=== PATIENT | female | born 1955 | race Caucasian/White ===

== ENCOUNTER 2024-05-26 15:01 | Outpatient (RCR) | payer MEDICARE, BC, SELFPAY | END 2024-05-26 23:59 | disposition home or self-care (01) | LOC: RPT 15:01 | PROVIDERS: ATTENDING PHYSICIAN Urology; FAMILY PHYSICIAN Internal Medicine | DX: N30.10 Interstitial cystitis (chronic) without hematuria (principal); M62.89 Other specified disorders of muscle; R33.9 Retention of urine, unspecified; N95.2 Postmenopausal atrophic vaginitis; Z73.6 Limitation of activities due to disability; M81.0 Age-related osteoporosis without current pathological fracture | CPT/HCPCS: 97110; 97112; 97163; 97530 ==

== ENCOUNTER 2024-07-01 13:56 | Outpatient (RCR) | payer MEDICARE, BC, SELFPAY | END 2024-07-01 23:59 | disposition home or self-care (01) | LOC: RPT 13:56 | PROVIDERS: ATTENDING PHYSICIAN Urology; FAMILY PHYSICIAN Internal Medicine | DX: N30.10 Interstitial cystitis (chronic) without hematuria (principal); M62.89 Other specified disorders of muscle; R33.9 Retention of urine, unspecified; N95.2 Postmenopausal atrophic vaginitis; Z73.6 Limitation of activities due to disability; M81.0 Age-related osteoporosis without current pathological fracture | CPT/HCPCS: 97014; 97110; 97112; 97140; 97530 ==

== ENCOUNTER 2024-07-31 07:10 | Outpatient (RCR) | payer MEDICARE, BC, SELFPAY | END 2024-07-31 23:59 | disposition home or self-care (01) | LOC: RPT 07:10 | PROVIDERS: ATTENDING PHYSICIAN Urology; FAMILY PHYSICIAN Internal Medicine | DX: N30.10 Interstitial cystitis (chronic) without hematuria (principal); M62.89 Other specified disorders of muscle; R33.9 Retention of urine, unspecified; N95.2 Postmenopausal atrophic vaginitis; Z73.6 Limitation of activities due to disability; M81.0 Age-related osteoporosis without current pathological fracture | CPT/HCPCS: 97014; 97110; 97112; 97140; 97530 ==

== ENCOUNTER 2024-08-28 14:09 | Outpatient (RCR) | payer MEDICARE, BC, SELFPAY | END 2024-08-28 23:59 | disposition home or self-care (01) | LOC: RPT 14:09 | PROVIDERS: ATTENDING PHYSICIAN Urology; FAMILY PHYSICIAN Internal Medicine | DX: N30.10 Interstitial cystitis (chronic) without hematuria (principal); M62.89 Other specified disorders of muscle; R33.9 Retention of urine, unspecified; N95.2 Postmenopausal atrophic vaginitis; Z73.6 Limitation of activities due to disability; M81.0 Age-related osteoporosis without current pathological fracture | CPT/HCPCS: 97014; 97110; 97112; 97140; 97530 ==

== ENCOUNTER 2024-09-24 11:55 | Outpatient (RCR) | payer MEDICARE, BC, SELFPAY | END 2024-09-24 23:59 | disposition home or self-care (01) | LOC: RPT 11:55 | PROVIDERS: ATTENDING PHYSICIAN Urology; FAMILY PHYSICIAN Internal Medicine | DX: N30.10 Interstitial cystitis (chronic) without hematuria (principal); M62.89 Other specified disorders of muscle; R33.9 Retention of urine, unspecified; N95.2 Postmenopausal atrophic vaginitis; Z73.6 Limitation of activities due to disability; M81.0 Age-related osteoporosis without current pathological fracture | CPT/HCPCS: 97110; 97112; 97530 ==

== ENCOUNTER 2024-10-21 10:12 | Outpatient (RCR) | payer MEDICARE, BC, SELFPAY | END 2024-10-21 10:46 | disposition home or self-care (01) | LOC: RPT 10:12 | PROVIDERS: ATTENDING PHYSICIAN Urology; FAMILY PHYSICIAN Internal Medicine | DX: N30.10 Interstitial cystitis (chronic) without hematuria (principal); M62.89 Other specified disorders of muscle; R33.9 Retention of urine, unspecified; N95.2 Postmenopausal atrophic vaginitis; Z73.6 Limitation of activities due to disability; M81.0 Age-related osteoporosis without current pathological fracture | CPT/HCPCS: 97112; 97530 ==